=== PATIENT | male | born 1970 | race Caucasian/White ===

== ENCOUNTER → 2022-09-22 | Day surgery (SDC) | payer OTHER ==
[2022-09-19 14:22] LABS: BASOPHILS % 0.6 % (0.0-1.0); EOSINOPHILS # (AUTO) 0.2 (0.0-0.4); EOSINOPHILS % 3.3 % (0.0-6.0); HEMATOCRIT 46.1 % (38.2-49.6); HEMOGLOBIN 15.4 g/dL (14.0-18.0); LYMPHOCYTES # (AUTO) 1.5 (1.0-3.2); LYMPHOCYTES % 28.4 % (18.0-39.1); MEAN CORPUSCULAR HEMOGLOBIN 29.6 pg (28-32); MEAN CORPUSCULAR HGB CONC 33.4 g/dL (31-35); MEAN CORPUSCULAR VOLUME 88.7 fL (81-99); MONOCYTES # (AUTO) 0.4 (0.2-0.8); MONOCYTES % 6.6 % (4.4-11.3); NEUTROPHILS # (AUTO) 3.3 (2.1-6.9); NEUTROPHILS % 60.7 % (38.7-80.0); PLATELET COUNT 157 x10e3/uL (140-360); RED CELL DISTRIBUTION WIDTH 13.2 % (11.7-14.4)
[2022-09-19 14:33] LABS: ANION GAP 14.4 mmol/L (8-16); CALCIUM 9.7 mg/dL (8.4-10.2); CREATININE, SERUM 0.98 mg/dL (0.72-1.25); POTASSIUM 4.4 mmol/L (3.5-5.1)
[~2022-09-22] MED LIST: ACETAMINOPHEN 1000 MG/100 ML 100 ML IV ONE; ALLOPURINOL300 MG PO; BUPIVACAINE HCL 0.5% INJ 30 ML VIAL INJ ONE; CEFAZOLIN SODIUM 2 GM ONE; DEXAMETHASONE SOD PHOS INJ 4 MG/ML SDV ONE; DOXYCYCLINE HY100 MG PO; EPHEDRINE SULFATE INJ 50 MG/ML VIAL ONE; FENTANYL CITRATE/PF 100MCG/2 ML INJ ONE; HYDROCODONE/APAP 5MG-325MG TAB ONE; KETOROLAC TROMETHAMINE 30 MG/ML VIAL ONE; LACTATED RINGER'S 1,000 ML ONE; LIDOCAINE HCL 2% LOCAL INJ 5 ML SDV VIAL INJ ONE; METOPROLOL SUCC50 MG PO; NEOSTIGMINE 1 MG/ML 10ML VIAL ONE; NIFEDIPINE ER30 M1 PO; ONDANSETRON HCL INJ 2MG/ML 2ML 2 MG/ML VIAL ONE; PANTOPRAZOLE SO40 MG PO; POVIDONE IODINE 0.05% 0.05 % ML PO ONE; PROPOFOL IV EMULSION 10 MG/ML 20 ML VIAL ONE; SEVOFLURANE INHAL SOLN 250 ML PEN BTL ONE
[2022-09-22 11:55] VITALS: BP 124/82
== END | disposition home or self-care (01) ==
LOC: OR 06:39
PROVIDERS: ATTEND Podiatrist Foot Surgery
DX: G57.62 Lesion of plantar nerve, left lower limb (principal); M20.12 Hallux valgus (acquired), left foot; M20.42 Other hammer toe(s) (acquired), left foot; M21.272 Flexion deformity, left ankle and toes; I10 Essential (primary) hypertension; Z01.810 Encounter for preprocedural cardiovascular examination; Z01.812 Encounter for preprocedural laboratory examination; Z01.818 Encounter for other preprocedural examination; Z79.899 Other long term (current) drug therapy
CPT/HCPCS: 28080; 28285; 28292; 28308; 36415; 71046; 80048; 85025; 88304; 93005; C1713 ×4; J0131; J1100; J1885; J2001; J2405; J2704; J2710; J3010; J7121; 76000